=== PATIENT | female | born 1995 | race Caucasian/White ===

== ENCOUNTER 2017-04-08 16:53 | Emergency (ER) | payer OTHER ==
[~2017-04-08] VITALS: Ht 167.6 cm; Wt 78.0 kg
[~2017-04-08 16:53] MED LIST: IMITREX25 MG PO; PEPCID20 MG PO; PERCOCET 7.5-31 EACH PO
[2017-04-08] MEDS ORDERED: DEPO-PROVER150 MG/ML IM (17:07)
[2017-04-08] MEDS ORDERED: ZOFRAN ODT4 MG PO (18:25)
[2017-04-08] MEDS ORDERED: KETOROLAC TROME10 MG PO (18:41)
[2017-04-08] MEDS ORDERED: BACLOFEN10 MG PO (18:41)
== END 2017-04-08 18:59 | disposition home or self-care (01) ==
LOC: ED 16:53
DX: R10.32 Left lower quadrant pain (principal); Z79.899 Other long term (current) drug therapy
CPT/HCPCS: 74176; 80053; 81001; 84703; 85025; 99284

== ENCOUNTER 2017-05-27 15:40 | Emergency (ER) | payer OTHER ==
[~2017-05-27] VITALS: Ht 167.6 cm; Wt 73.5 kg
[~2017-05-27 15:40] MED LIST changes: +BACLOFEN10 MG PO; +DEPO-PROVER150 MG/ML IM; +KETOROLAC TROME10 MG PO; +ZOFRAN ODT4 MG PO
[2017-05-27] MEDS ORDERED: CILOXAN5 ML OD (16:16)
--- OUTSIDE RECORDS SUMMARY | 2017-05-27 16:37 | XMS | Clinical Summary ---
Demographics + + + | Address | [address] | | | [place] [address] | + + + | Home Phone | | + + + | Preferred Language | Unknown | + + + | Marital Status | Single | + + + | Worship Affiliation | CHR | + + + | Race | Unknown | + + + | Ethnic Group | Not or | + + + Author + + + | Author | NON REVENUE LOCATIONS | + + + | Organization | NON REVENUE LOCATIONS | + + + | Address | Unknown | + + + | Phone | Unavailable | + + + Support +------+ + + + +-------+ | Name | Relationship | Address | Phone | +------+ + + + +-------+ ECON | [address] | | [place] | [address] | +------+ + + + +-------+ Care Team Providers + +------+ + | Care Semiconductor Packages Platemaker Name | Role | Phone | + +------+ + | No Pcp Per Patient | PP | Unavailable | + +------+ + Source Comments BERNIE is fully live on both [facility] and [facility] Allergies No Known Allergies Current Medications + + + +---------+------+------+-------+ | Prescription | Sig. | Disp. | Refills | Star | End | Statu | | | | | | t | Date | s | | | | | | Date | | | + + + +---------+------+------+-------+ | multivitamin Oral | Take 1 Cap by mouth | | | | | Activ | | capsule | once daily. | | | | | e | + + + +---------+------+------+-------+ | Cholecalciferol, | Take 5,000 Units by | | | | | Activ | | Vitamin D3, (VITAMIN | mouth once daily. | | | | | e | | D3) 5,000 unit Oral | | | | | | | | tablet | | | | | | | + + + +---------+------+------+-------+ | ibuprofen 800 mg | Take 1 Tab by mouth | 30 Tab | 0 | 03/2 | | Activ | | Oral tablet | every eight hours as | | | 520 | | e | | | needed. 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 | | | | 13 | 3 | + + + + Family History + + +------+ + | Medical History | Relation | Name | Comments | + + +------+ + | Cancer | Maternal | | breast and ovarian, as well as a tumor in | | | Grandmoth | | her neck | | | er | | | + + +------+ + | Cancer | Mother | | skin | + + +------+ + | Cancer | Paternal | | breast | | | Grandmoth | | | | | er | | | + + +------+ + + +------+--------+ + | Relation | Name | Status | Comments | + +------+--------+ + | Maternal Grandmother | | | | + +------+--------+ + | Mother | | | | + +------+--------+ + | Paternal Grandmother | | | | + +------+--------+ + Social History + +-------+ +--------+------+ | Tobacco Use | Types | Packs/Day | Years | Date | | | | | Used | | + +-------+ +--------+------+ | Never Smoker | | | | | + +-------+ +--------+------+ + + +---------+ + | Alcohol Use | Drinks/We | oz/Week | Comments | | | ek | | | + + +---------+ + | No | | | | + + +---------+ + + + + | Sex Assigned at | Date Recorded | | | | + + + | Not on file | | + + + Last Filed Vital Signs + + + + | Vital Sign | Reading | Time Taken | + + + + | Blood Pressure | 116/64 | 10/20/2012 1:12 PM PDT | + + + + | Pulse | 70 | 09/20/2012 11:56 AM PDT | + + + + | Temperature | 36.4 C (97.5 F) | 09/20/2012 11:15 AM PDT | + + + + | Respiratory Rate | 16 | 09/20/2012 11:56 AM PDT | + + + + | Oxygen Saturation | 100% | 09/20/2012 11:56 AM PDT | + + + + | Inhaled Oxygen | - | - | | Concentration | | | + + + + | Weight | 68.6 kg (151 lb 4.8 | 10/20/2012 1:12 PM PDT | | | oz) | | + + + + | Height | 170.2 cm (5' 7") | 09/20/2012 8:44 AM PDT | + + + + | Body Mass Index | - | - | + + + + Plan of Treatment + + + + + | Health Maintenance | Due Date | Last Done | Comments | + + + + + | INFLUENZA VACCINE | | | | | (FLU SHOT) | 7 | | | + + + + + Results Not on filefrom Last 3 Months
== END 2017-05-27 16:34 | disposition home or self-care (01) ==
LOC: ED 15:40
DX: H10.9 Unspecified conjunctivitis (principal)
CPT/HCPCS: 99283

== ENCOUNTER 2017-08-04 00:40 | Emergency (ER) | payer OTHER, MEDICAID ==
[~2017-08-04] VITALS: Ht 167.6 cm; Wt 74.8 kg
[~2017-08-04 00:40] MED LIST changes: +CILOXAN5 ML OD
--- OUTSIDE RECORDS SUMMARY | 2017-08-04 01:40 | XMS | Clinical Summary ---
Demographics + + + | Address | [address] | | | [place] [address] | + + + | Home Phone | | + + + | Preferred Language | Unknown | + + + | Marital Status | Single | + + + | Rastafarian Affiliation | CHR | + + + [...] +------+ + + + +-------+ ECON | [address] | | [place] | [address] | +------+ + + + +-------+ Care Team Providers + +------+ + | Care Polishing Wheel Repairer Name | Role | Phone | + +------+ + | No Pcp Per Patient | PP | Unavailable | + +------+ + Source Comments BERNIE is fully live on both [facility] and [facility] In[facility] Allergies No Known Allergies Current Medications + [...]
--- OUTSIDE RECORDS SUMMARY | 2017-08-04 01:40 | XMS | Clinical Summary ---
Demographics + + + | Address | [address] | | | [place] [address] | + + + | Home Phone | | + + + | Preferred Language | Unknown | + + + | Marital Status | Single | + + + | Pentecostalism Affiliation | CHR | + + + [...] +------+ + + + +-------+ ECON | [address] | | [place] | [address] | +------+ + + + +-------+ Care Team Providers + +------+ + | Care Methodologist Name | Role | Phone | + +------+ + | No Pcp Per Patient | PP | Unavailable | + +------+ + Source Comments BERNIE is fully live on both [facility] and [facility] Allergies No Known Allergies Current Medications [...]
== END 2017-08-04 01:40 | disposition home or self-care (01) ==
LOC: ED 00:40
DX: H10.9 Unspecified conjunctivitis (principal)
CPT/HCPCS: 99282

== ENCOUNTER 2019-12-12 23:15 | Inpatient (IN) | payer OTHER ==
[~2019-12-12] VITALS: Ht 170.2 cm; Wt 104.0 kg
--- NOTE | 2019-12-13 07:58 | PR ---
[facility] [address] [facility] [place], [place] [address] Signed Progress Notes IP Datetime Report Generated by CPN: 12/13/2019 07:58 PROGRESS NOTES: [id number] Impression: Normal progression of labor Procedures: Artificial ROM Plan: Continue present management; Anticipate Vaginal Delivery VITAL SIGNS: [id number] Vital Signs: Reviewed; Within Normal Limits EXAM: [id number] Dilatation: 4.0 Effacement: 90 Station: -1 Uterine Contractions: every 2-3 minutes MEMBRANES: [id number] Membrane Status: Ruptured Amniotic Fluid Color: Clear ROM Note: AROM with small amount clear fluid returned Comments: Comfortable with Epidural Fetus A: [id number] FHR Baseline: 140 Variability: Moderate 6-25bpm Presentation: Vertex Fetus B: [id number] Signing Physician: Adriane Farfan MD Copies: ~ *Electronically Signed* 12/13/19 0758 ADRIANE FARFAN MD PATIENT NAME: MICHELLE RUDOLPH PROGRESS NOTE DATE OF : 97 PHYSICIAN: ADRIANE FARFAN MD RPT #: [id number] REPORT IS CONFIDENTIAL AND NOT TO BE RELEASED WITHOUT AUTHORIZATION
--- NOTE | 2019-12-14 09:52 | PR ---
[facility] [address] [facility] [place] [address] Signed PP Progress Notes Datetime Report Generated by CPN: 12/14/2019 09:52 SUBJECTIVE: [id number] Pain: Within normal limits Nausea/Vomiting: Denies Vital Signs: [id number] Vital Signs: Reviewed; Within Normal Limits Notable Details: PP Hgb/Hct = 10.0/32.0 EXAM: [id number] Abdomen/Uterus: Normal Lochia: Normal Extremities: Normal IMPRESSION/PLAN/PROCEDURES: [id number] Impression: Normal progression Plan: Continue present management Procedures: None Progress Notes: Doing well, without complaint Signing Physician: Adriane Farfan MD Copies: ~ *Electronically Signed* 12/14/19 0952 ADRIANE FARFAN MD PATIENT NAME: MICHELLE RUDOLPH PROGRESS NOTE DATE OF : 97 PHYSICIAN: ADRIANE FARFAN MD RPT #: [id number] REPORT IS CONFIDENTIAL AND NOT TO BE RELEASED WITHOUT AUTHORIZATION
--- NOTE | 2019-12-15 08:44 | PR ---
[facility] [address] [facility] [place] [address] Signed PP Progress Notes Datetime Report Generated by CPN: 12/15/2019 08:44 SUBJECTIVE: [id number] Pain: Within normal limits Nausea/Vomiting: Denies Vital Signs: [id number] Vital Signs: Reviewed; Within Normal Limits Notable Details: PP Hgb/Hct = 10.0/32.0 EXAM: [id number] Abdomen/Uterus: Normal Lochia: Normal Extremities: Normal IMPRESSION/PLAN/PROCEDURES: [id number] Impression: Normal progression Plan: Discharge Procedures: None Progress Notes: Doing well, without complaint, ready to go home. Signing Physician: Adriane Farfan MD Copies: ~ *Electronically Signed* 12/15/19 0844 ADRIANE FARFAN MD PATIENT NAME: MICHELLE RUDOLPH PROGRESS NOTE DATE OF : 97 PHYSICIAN: ADRIANE FARFAN MD RPT #: [id number] REPORT IS CONFIDENTIAL AND NOT TO BE RELEASED WITHOUT AUTHORIZATION
== END 2019-12-15 12:30 | disposition home or self-care (01) | DRG 807 ==
LOC: FBCO 23:15 → FBC 23:48
PROVIDERS: ADMIT General Practice
PROC: 10E0XZZ Delivery of Products of Conception, External Approach (ICD-10-PCS; principal; 2019-12-13)
PROC: 0UQMXZZ Repair Vulva, External Approach (ICD-10-PCS; 2019-12-13)
PROC: 0UQGXZZ Repair Vagina, External Approach (ICD-10-PCS; 2019-12-13)
PROC: 10907ZC Drainage of Amniotic Fluid, Therapeutic from Products of Conception, Via Natural or Artificial Opening (ICD-10-PCS; 2019-12-13)
PROC: 00HU33Z Insertion of Infusion Device into Spinal Canal, Percutaneous Approach (ICD-10-PCS; 2019-12-13)
PROC: 3E0R3BZ Introduction of Anesthetic Agent into Spinal Canal, Percutaneous Approach (ICD-10-PCS; 2019-12-13)
DX: O99.824 Streptococcus B carrier state complicating childbirth (principal); Z37.0 Single live birth; Z3A.39 39 weeks gestation of pregnancy; O71.82 Other specified trauma to perineum and vulva; O71.4 Obstetric high vaginal laceration alone; O99.62 Diseases of the digestive system complicating childbirth; K21.9 Gastro-esophageal reflux disease without esophagitis; O99.284 Endocrine, nutritional and metabolic diseases complicating childbirth; E02 Subclinical iodine-deficiency hypothyroidism; E55.9 Vitamin D deficiency, unspecified; Z79.899 Other long term (current) drug therapy
CPT/HCPCS: 01960; 36415; 85027; A9270; J2540; J2590; J2795; J3010; J7121

== ENCOUNTER 2020-10-05 21:02 | Emergency (ER) | payer OTHER ==
[~2020-10-05] VITALS: Ht 170.2 cm; Wt 93.4 kg
[~2020-10-05 21:02] MED LIST changes: +PREDNISONE20 MG PO
== END 2020-10-05 23:12 | disposition home or self-care (01) ==
LOC: ED 21:02
DX: R09.89 Other specified symptoms and signs involving the circulatory and respiratory systems (principal)
CPT/HCPCS: 96374; 96375; 99284-25; J1200; J2405; J2930

== ENCOUNTER 2021-02-26 16:08 | Emergency (ER) | payer OTHER ==
[~2021-02-26] VITALS: Ht 170.2 cm; Wt 93.4 kg
[2021-02-27] MEDS ORDERED: BENADRYL ALLERG25 MG PO (21:48)
== END 2021-02-26 16:38 | disposition home or self-care (01) ==
LOC: ED 16:08
DX: S01.01XA Laceration without foreign body of scalp, initial encounter (principal); W22.8XXA Striking against or struck by other objects, initial encounter
CPT/HCPCS: 99283

== ENCOUNTER 2021-02-27 20:21 | Emergency (ER) | payer OTHER ==
[~2021-02-27] VITALS: Ht 170.2 cm; Wt 93.4 kg
--- OUTSIDE RECORDS SUMMARY | 2021-02-27 20:28 | XMS ---
PreManage Notification: MICHELLE MEDINA Security De Icer Events No recent Security Events currently on file CRITERIA MET - [facility] - 2 Visits in 30 Days CARE PROVIDERS There are no care providers on record at this time. [facility] has no Care Guidelines for this patient. [place] VISIT COUNT (12 MO.) [facility] T[facility] NOTE: Visits indicate total known visits. ED/C VISIT TRACKING (12 MO.) [facility]21 [facility] COMPLAINT: - RT EYE SWELLING 02/26/2021 16:08 [facility] TYPE: Emergency COMPLAINT: - HEAD INJURY 10/05/2020 21:03 [facility] [place] TYPE: Emergency COMPLAINT: - CHEST PAIN DIAGNOSES: - Other specified symptoms and signs involving the circulatory and respiratory systems 04/21/2020 16:08 [facility] [place] TYPE: Emergency COMPLAINT: - ALLERGIC REACTION DIAGNOSES: - Unspecified contact dermatitis due to other chemical products - Unspecified contact dermatitis, unspecified cause - Poisoning by other topical agents, accidental (unintentional), initial encounter - Unspecified contact dermatitis due to other chemical products INPATIENT VISIT TRACKING (12 MO.) No inpatient visits to display in this time frame [email or web address]
[2021-02-27] MEDS ORDERED: BENADRYL ALLERG25 MG PO (21:48)
== END 2021-02-27 21:59 | disposition home or self-care (01) ==
LOC: ED 20:21
DX: H02.89 Other specified disorders of eyelid (principal)
CPT/HCPCS: 99283

== ENCOUNTER 2022-02-25 13:35 | Inpatient (IN) | payer OTHER ==
[~2022-02-25] VITALS: Ht 170.2 cm; Wt 116.2 kg
[~2022-02-25 13:35] MED LIST changes: +BENADRYL ALLERG25 MG PO
--- NOTE | 2022-02-25 18:07 | PR ---
[facility] [address] [facility] [place], [place] [address] Signed Progress Notes IP Datetime Report Generated by CPN: 02/25/2022 18:07 PROGRESS NOTES: [id number] Impression: Normal Progression of Labor Procedures: Artificial ROM Plan: Continue Present Management; Anticipate Vaginal Delivery Informed Consent Obtain: Vaginal Delivery VITAL SIGNS: [id number] Vital Signs: Reviewed; Within Normal Limits EXAM: [id number] Dilatation: 5.0 Effacement: 70 Station: -3 Contractions: Irregular MEMBRANES: [id number] Comments: PT seen and examined. Doing well. Epidural placement completed and pt comfortable. AROM performed w/out difficulty for moderate amount of clear fluid. Continue expectant management. FETUS A: [id number] FHR Baseline: 130 Variability: Moderate 6-25bpm Accelerations: 15X15 Decelerations: None FHR Category: Category I Presentation: Vertex Comments on Fetus A: No evidence of metabolic acidosis FETUS B: [id number] Signing Physician: Melany Bello DO Copies: ~ *Electronically Signed* 02/25/22 5069 MELANY BELLO DO PATIENT NAME: MICHELLE MEDINA FRANCISCO JAVIER PROGRESS NOTE DATE OF : 97 PHYSICIAN: MELANY BELLO DO RPT #: [id number] REPORT IS CONFIDENTIAL AND NOT TO BE RELEASED WITHOUT AUTHORIZATION
--- NOTE | 2022-02-25 21:02 | PR ---
[facility] [address] [place], [place] [address] Signed Progress Notes IP Datetime Report Generated by CPN: 02/25/2022 21:02 PROGRESS NOTES: [id number] Impression: Normal Progression of Labor; Reassuring Heart Rate Procedures: Intrauterine Pressure Catheter; Scalp Electrode; Sterile Vag Exam Plan: Continue Present Management Informed Consent Obtain: Vaginal Delivery VITAL SIGNS: E2100375 Vital Signs: Reviewed; Within Normal Limits EXAM: [id number] Dilatation: 5.5 Effacement: 75 Station: -2 Contractions: Irregular MEMBRANES: [id number] Comments: Pt seen and examined. Doing well. Comfortable w/ epidural after rebolus. IUPC and FSE placed w/out difficulty. Discussed anticapted remainder of labor / delivery, adequate pelvis, and EFW. All questions answered. Anticipate . FETUS A: [id number] FHR Baseline: 130 Variability: Moderate 6-25bpm Accelerations: 15X15 Decelerations: None FHR Category: Category I Presentation: Vertex Comments on Fetus A: No evidence of metabolic acidosis FETUS B: [id number] Signing Physician: Melany Bello DO Copies: ~ *Electronically Signed* 02/25/222101 MELANY BELLO DO PATIENT NAME: MICHELLE MEDINA PROGRESS NOTE DATE OF : 97 PHYSICIAN: MELANY BELLO DO RPT #: [id number] REPORT IS CONFIDENTIAL AND NOT TO BE RELEASED WITHOUT AUTHORIZATION
--- NOTE | 2022-02-26 13:01 | PR ---
[facility] [address] [facility] [place], [place] [address] Signed PP Progress Notes Datetime Report Generated by CPN: 02/26/2022 13:01 SUBJECTIVE: [id number] Pain: Within Normal Limits Nausea/Vomiting: Denies Flatus: Yes Bowel Movement: No Vital Signs: [id number] Vital Signs: Reviewed; Within Normal Limits EXAM: Ongoing Cardiovascular: Normal Respiratory: Normal Abdomen/Uterus: Normal Lochia: Normal Vulva/Perineum: Not Done Breasts: Not Done CVA Tenderness: Normal Extremities: Normal Incision: Not Applicable Progress: Normal Exam Comments: Fundus firm U-2 nontender IMPRESSION/PLAN/PROCEDURES: [id number] Impression: Normal Progression Plan: Continue Present Management Progress Notes: Pt doing well. No concerns. Anticipate d/c home tomorrow. Signing Physician: Melany Bello DO Copies: ~ *Electronically Signed* 02/26/22 1301 MELANY BELLO DO PATIENT NAME: MICHELLE MEDINA PROGRESS NOTE DATE OF : 97 PHYSICIAN: MELANY BELLO DO RPT #: [id number] REPORT IS CONFIDENTIAL AND NOT TO BE RELEASED WITHOUT AUTHORIZATION
--- NOTE | 2022-02-27 07:55 | PR ---
[facility] [address] [facility] [place], [place] [address] Signed PP Progress Notes Datetime Report Generated by CPN: 02/27/2022 07:55 SUBJECTIVE: [id number] Pain: Within Normal Limits Nausea/Vomiting: Denies Flatus: Yes Bowel Movement: No Vital Signs: [id number] Vital Signs: Reviewed; Within Normal Limits EXAM: Ongoing Cardiovascular: Normal Respiratory: Normal Abdomen/Uterus: Normal Lochia: Normal Vulva/Perineum: Not Done Breasts: Not Done CVA Tenderness: Normal Extremities: Normal Incision: Not Applicable Progress: Normal Exam Comments: Fundus firm U-2 nontender. IMPRESSION/PLAN/PROCEDURES: [id number] Impression: Normal Progression Plan: Discharge Procedures: None Progress Notes: Pt seen and examined. Doing well. Ambulating, voiding, and tolerating full diet. Pain and lochia minimal. well. No fevers/chills or other concerns. Desires d/c home. Reviewed d/c instructions in detail. Planning pp tubal. Signing Physician: Melany Bello DO Copies: ~ *Electronically Signed* 02/27/22 0755 MELANY BELLO DO PATIENT NAME: MICHELLE MEDINA PROGRESS NOTE DATE OF : 97 PHYSICIAN: MELANY BELLO DO RPT #: [id number] REPORT IS CONFIDENTIAL AND NOT TO BE RELEASED WITHOUT AUTHORIZATION
== END 2022-02-27 10:55 | disposition home or self-care (01) | DRG 768 ==
LOC: FBC 13:35
PROVIDERS: ADMIT Obstetrics & Gynecology; ATTEND Obstetrics & Gynecology
PROC: 10E0XZZ Delivery of Products of Conception, External Approach (ICD-10-PCS; principal; 2022-02-25)
PROC: 0UQJXZZ Repair Clitoris, External Approach (ICD-10-PCS; 2022-02-25)
PROC: 10907ZC Drainage of Amniotic Fluid, Therapeutic from Products of Conception, Via Natural or Artificial Opening (ICD-10-PCS; 2022-02-25)
PROC: 0UQMXZZ Repair Vulva, External Approach (ICD-10-PCS; 2022-02-25)
PROC: 00HU33Z Insertion of Infusion Device into Spinal Canal, Percutaneous Approach (ICD-10-PCS; 2022-02-25)
PROC: 3E0R3BZ Introduction of Anesthetic Agent into Spinal Canal, Percutaneous Approach (ICD-10-PCS; 2022-02-25)
PROC: 10H07YZ Insertion of Other Device into Products of Conception, Via Natural or Artificial Opening (ICD-10-PCS; 2022-02-25)
DX: O99.824 Streptococcus B carrier state complicating childbirth (principal); Z37.0 Single live birth; O69.81X0 Labor and delivery complicated by cord around neck, without compression, not applicable or unspecified; O71.82 Other specified trauma to perineum and vulva; O70.0 First degree perineal laceration during delivery; E03.9 Hypothyroidism, unspecified; O99.284 Endocrine, nutritional and metabolic diseases complicating childbirth; Z3A.39 39 weeks gestation of pregnancy
CPT/HCPCS: 36415; 85027; 86850; 86900; 86901; 87502; A9270; C9803; J1170; J2001; J2405; J2540; J2590; J2795; J7121; U0003

== ENCOUNTER 2023-04-13 19:28 | Emergency (ER) | payer OTHER ==
[~2023-04-13] VITALS: Ht 170.2 cm; Wt 97.5 kg
[2023-04-13] MEDS ORDERED: TOPIRAMATE25 MG PO (23:05)
[2023-04-13] MEDS ORDERED: UBRELVY100 MG PO (23:05)
[2023-04-14 01:04] VITALS: BP 128/68
== END 2023-04-14 01:05 | disposition home or self-care (01) ==
LOC: ED 19:28
DX: S61.011A Laceration without foreign body of right thumb without damage to nail, initial encounter (principal); W25.XXXA Contact with sharp glass, initial encounter; Z23 Encounter for immunization; Z79.899 Other long term (current) drug therapy
CPT/HCPCS: 90715

== ENCOUNTER 2023-11-22 03:55 | Emergency (ER) | payer OTHER ==
[~2023-11-22] VITALS: Ht 170.2 cm; Wt 106.2 kg
[~2023-11-22 03:55] MED LIST changes: +TOPIRAMATE25 MG PO; +UBRELVY100 MG PO
[2023-11-22] MEDS ORDERED: ondansetron HCL 4 MG/2 ML VIAL IV ONE (04:30)
[2023-11-22] MEDS ORDERED: SODIUM CHLORIDE 0.9% 500 ML IV ONE (04:30)
[2023-11-22 04:38] LABS: HEMOGLOBIN 13.2 g/dL (12.0-18.0); MCV 82.3 fl (81-99)
[2023-11-22 04:45] LABS: BASOPHILS 0.3 % (0-2); EOSINOPHILS 0.5 % (0-6); HEMATOCRIT 40.7 % (35.0-50.0); LYMPHOCYTES 14.5 % (24-44); MCH 26.8 (27-36); MCHC 32.5 g/dl (30-36); MONOCYTES 4.6 % (0-12); NEUTROPHILS 80.1 % (39-80); PLATELET COUNT 388 K/uL (140-440); RBC 4.95 M/ul (4.3-5.7); RDW 13.3 (10.5-15.0)
[2023-11-22 04:53] LABS: ALBUMIN 3.3 g/dL (3.4-5.0); ALBUMIN/GLOBULIN RATIO 0.75 (1.1-2.4); ANION GAP 15.3 (7-21); BILIRUBIN, TOTAL 0.4 ng/dL (0.2-1.0); BUN/CREATININE RATIO 11.7 (6.0-28.6); CALCIUM 8.5 mg/dL (8.5-10.1); CREATININE, SERUM 0.94 mg/dL (0.55-1.02); MAGNESIUM 2.2 mg/dL (1.8-2.4); POTASSIUM 4.3 mmol/L (3.5-5.1); PROTEIN, TOTAL 7.7 g/dL (6.4-8.2)
[2023-11-22 05:16] LABS: BILIRUBIN, URINE NEGATIVE (negative); BLOOD/HGB, URINE NEGATIVE (Negative); KETONE, URINE NEGATIVE (Negative); LEUK ESTERASE, URINE NEGATIVE (negative); NITRITE, URINE NEGATIVE (negative); PH, URINE 8.5 (5-7)
[2023-11-22] MEDS ORDERED: ONDANSETRON ODT8 MG PO (05:27)
[2023-11-22] MEDS ORDERED: ONDANSETRON 4 MG HOME.PACK SL ONE (05:30)
[2023-11-22 05:40] VITALS: BP 118/69
== END 2023-11-22 05:38 | disposition home or self-care (01) ==
LOC: ED 03:55
PROVIDERS: Family Medicine
DX: A08.4 Viral intestinal infection, unspecified (principal); Z79.899 Other long term (current) drug therapy
CPT/HCPCS: 36415; 80053; 81003; 83735; 84703; 85025; 96361; 96374; 99284-25; A9270; J2405; J7040

== ENCOUNTER 2024-04-03 17:40 | Observation (INO) | payer OTHER ==
[~2024-04-03] VITALS: Ht 170.2 cm; Wt 110.0 kg
[~2024-04-03 17:40] MED LIST changes: +ONDANSETRON ODT8 MG PO
[2024-04-03 18:09] LABS: BASOPHILS 0.2 % (0-2); EOSINOPHILS 0.7 % (0-6); HEMATOCRIT 40.7 % (35.0-50.0); MCH 28.3 (27-36); MCHC 34.3 g/dl (30-36); MCV 82.5 fl (81-99); MONOCYTES 5.3 % (0-12); NEUTROPHILS 78.8 % (39-80); PLATELET COUNT 348 K/uL (140-440); RBC 4.94 M/ul (4.3-5.7); RDW 13.6 (10.5-15.0)
[2024-04-03 18:15] LABS: INR 1.01 (0.80-1.30)
[2024-04-03] MEDS ORDERED: CEFTRIAXONE/SODIUM CHLORIDE 2 GM/100 ML PIGGYBACK IV ONE (18:15)
[2024-04-03] MEDS ORDERED: SODIUM CHLORIDE 0.9% 1,000 ML IV PRN ×2 (18:15→20:00)
[2024-04-03 18:17] LABS: PARTIAL THROMBOPLASTIN TIME 29.1 Sec (22.9-41.3)
[2024-04-03 18:21] LABS: ALBUMIN 3.3 g/dL (3.4-5.0); ALBUMIN/GLOBULIN RATIO 0.79 (1.1-2.4); ANION GAP 16.7 (7-21); BILIRUBIN, TOTAL 0.2 ng/dL (0.2-1.0); BUN/CREATININE RATIO 8.33 (6.0-28.6); CALCIUM 8.7 mg/dL (8.5-10.1); CREATININE, SERUM 0.96 mg/dL (0.55-1.02); POTASSIUM 3.7 mmol/L (3.5-5.1); PROTEIN, TOTAL 7.5 g/dL (6.4-8.2)
[2024-04-03 18:31] LABS: LACTIC ACID, BLOOD 2.1 mmol/L (0.4-2.0)
[2024-04-03] MEDS ORDERED: ACETAMINOPHEN 500 MG TAB PO ONE (18:45)
[2024-04-03 19:00] LABS: INFLUENZA B NAA NEGATIVE (NEGATIVE); RESPIRATORY SYNCYTIAL VIR NAA NEGATIVE (NEGATIVE)
[2024-04-03] MEDS ORDERED: AZITHROMYCIN/DEXTROSE 500 MG/250 ML BAG ONE (20:24)
[2024-04-03] MEDS ORDERED: AZITHROMYCIN 500 MG in DEXTROSE 5% 250 ML IV ONE (20:30)
[2024-04-03] MEDS ORDERED: ALBUTEROL/IPRATROPIUM 3 ML NEB INH ONE (22:00)
[2024-04-03] MEDS ORDERED: BENZONATATE 100 MG CAP PO ONE (22:00)
[2024-04-03 22:21] LABS: BILIRUBIN, URINE NEGATIVE (negative); BLOOD/HGB, URINE NEGATIVE (Negative); KETONE, URINE NEGATIVE (Negative); LEUK ESTERASE, URINE NEGATIVE (negative); NITRITE, URINE NEGATIVE (negative); PH, URINE 7.5 (5-7)
[2024-04-03] MEDS ORDERED: SODIUM CHLORIDE 0.9% 1,000 ML IV SCH (22:45)
[2024-04-03] MEDS ORDERED: ACETAMINOPHEN 325 MG TAB PO PRN (23:45)
[2024-04-03] MEDS ORDERED: GUAIFENESIN 10 ML UNIT DOSE CUP PO ONE (23:45)
[2024-04-03] MEDS ORDERED: GUAIFENESIN/DEXTROMETHORPHAN 5 ML SYRUP PO ONE (23:45)
[2024-04-04] VITALS (11 sets, daily range): BP systolic 116–134; BP diastolic 64–99
[2024-04-04] MEDS ORDERED: GUAIFENESIN 10 ML UNIT DOSE CUP PO PRN (00:15)
[2024-04-04] MEDS ORDERED: IBUPROFEN 400 MG TAB PO PRN (00:15)
[2024-04-04] MEDS ORDERED: BENZONATATE 100 MG CAP PO PRN (00:15)
--- NOTE | 2024-04-04 00:30 | NUR ---
PATIENT ARRIVED TO THE FLOOR VIA STRETCHER. PATIENT ABLE TO SELF XFER TO HOSPITAL BED. PATIENTS VITALS TAKEN AND RECORDED. PATIENT PLACED ON TELE #7. PATIENTS ADMISSION COMPLETED BY FLAGSETTER. PATIENT DENIES ANY PAIN. PATIENT GIVEN ICE WATER AND SANDWICH BOX. PATIENT NOTED TO BE FEBRILE. PLACED CALL TO MD AND RECEIVED VERBAL ORDERS. VERIFIED ORDERS USING THE REPEATBACK METHOD. PATIENT IS ON RA. PATIENT ORIENTED TO CALL LIGHT. DISCUSSED PLAN OF CARE WITH PATIENT AND ALL QUESTIONS ANSWERED. NO FURTHER NEEDS NOTED.
--- NOTE | 2024-04-04 02:14 | NUR ---
PATIENT ASSISTED TO THE BR A SBA. PATIENT ABLE TO VOID. PATIENT IS BACK IN BED RESTING. PATIENT REPORTS PAIN WITH COUGHING. PATIENTS TEMP EVALUATED AND CONTINUES TO BED ELEVATED. PRN MEDICATION GIVEN FOR PAIN/FEVER-SEE EMAR. PATIENT PROVIDED FRESH ICE WATER AND A CUP OF ICE. PATIENT DENIES ANY FURTHER NEEDS. CALL LIGHT IN REACH.
--- NOTE | 2024-04-04 03:45 | NUR ---
TEMP RECHECKED AND IS WNL. PATIENT JAE ANY NEEDS. CALL LIGHT IN REACH.
--- NOTE | 2024-04-04 06:31 | NUR ---
PATIENTS VITALS TAKEN AND RECORDED. INTAKE AND OUTPUT RECORDED. PATIENT UP TO BR AND ABLE TO VOID. PATIENT IS BACK IN BED RESTING. PATIENT REPORTS A COUGH, PRN MEDICATION GIVEN PER ORDER. PATIENT PROVIE FRESH ICE WATER. PATIENT JAE ANY FURTHER NEEDS. CALL LIGHT IN REACH. PATIENT DENIES ANY SOB. PATIENT IS ON RA.
[2024-04-04 07:31] LABS: BASOPHILS 0.3 % (0-2); EOSINOPHILS 0.9 % (0-6); HEMOGLOBIN 12.1 g/dL (12.0-18.0); LYMPHOCYTES 27.9 % (24-44); MCH 27.9 (27-36); MCHC 33.7 g/dl (30-36); MCV 82.8 fl (81-99); MONOCYTES 6.5 % (0-12); NEUTROPHILS 64.4 % (39-80); PLATELET COUNT 242 K/uL (140-440); RBC 4.35 M/ul (4.3-5.7); RDW 13.4 (10.5-15.0)
[2024-04-04 07:33] LABS: ANION GAP 10.7 (7-21); BUN/CREATININE RATIO 7.89 (6.0-28.6); CALCIUM 8.4 mg/dL (8.5-10.1); CREATININE, SERUM 0.76 mg/dL (0.55-1.02); MAGNESIUM 2.2 mg/dL (1.8-2.4); POTASSIUM 3.7 mmol/L (3.5-5.1)
--- NOTE | 2024-04-04 07:53 | NUR ---
PT RESTING ON BACK WITH EYES CLOSED, RR EVEN AND UNLABORED. CPOX IN PLACE. CALL LIGHT IN REACH.
--- NOTE | 2024-04-04 08:03 | NUR ---
PT WAS LAYING DOWN WHEN I WENT IN TO CHECK IF SHES GOTTEN HER BREAKFAST. GAVE PT A WARM WASH CLOTH AND ASKED IF SHE WANTED TO SIT UP IN HER CHAIR FOR BREAKFAST. PT DENIED AND IS SITTING UP IN BED FOR BREAKFAST AND DIDNT NEED ANYTHING ELSE FROM ME AND CALL LIGHT IS WITHIN REACH.
--- NOTE | 2024-04-04 08:40 | NUR ---
ASSESSMENT COMPLETE - PT RESTING IN BED AWAKE AND 100% BREAKFAST EATEN. SP02 >92% ON ROOM AIR. HARSH COUGH NOTED WHICH PT IS SPLINTING R/T RIB PAIN. PRN ADMINISTERED. AFEBRILE AT THIS TIME. PT VOIDING IN BATHROOM INDEPENDENTLY, ENCOURAGED PO FLUID INTAKE. CURRENT POC AND INTERVENTIONS EXPLAINED, PT THANKFUL AND STATES UNDERSTANDING. CALL LIGHT IN REACH.
[2024-04-04] MEDS ORDERED: TOPIRAMATE 25 MG TAB PO SCH (09:54)
--- NOTE | 2024-04-04 10:00 | NUR ---
RN ROUNDING ON PT - PT SITTING UP IN BED RESTING, LOOKING AT PHONE. VS STABLE, REMAINS AFEBRILE. SP02 STABLE ON ROOM AIR. PT C/O HARSH COUGH THAT HURTS. VOIDING WITHOUT DIFFICULTY. CALL LIGHT IN REACH.
--- NOTE | 2024-04-04 10:14 | NUR ---
SPOKE TO PATIENT ABOUT THE DC PLAN.PATIENT'S DEMOGRAPHICS ARE CORRECT. PATIENT DOES NOT USE DME. PATIENT HAS MONEY FOR HOUSING AND FOOD. PATIENT HAS FRIENDS AND FANILY AND FRIENDS THAT CAN HELP. PATIENT PLANS TO GO HOME WITH HER . 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
--- NOTE | 2024-04-04 10:54 | NUR ---
GOT PT MORE WATER AND ASKED IF SHE WANTED A TEA SHE SAID YES I MADE PT A TEA PT DIDNT NEED ANYTHING ELSE AND CALL LIGHT IS WITHIN REACH.
[2024-04-04] MEDS ORDERED: GUAIFENESIN/CODEINE 5 ML UDC PO PRN (11:00)
--- NOTE | 2024-04-04 11:00 | NUR ---
PT CONTINUING TO EXPERIENCE BRONCHIAL SPASMS - UPDATED, ORDERS ENTERED FOR RT ASSESSMENT AND MEDS. SP02 REMAINS STABLE DURING COUGHING EPISODES. TEA WITH HONEY PROVIDED WELL PRN MEDICATIONS. RT IN ROOM TO COMPLETE ASSESSMENT. PT DENIES EXPOSURE TO ANYONE SICK WITH COUGH OR CONFINED PROLONGED EXPOSURE TO MINORITY GROUPS AT INCREASED RISK OF TB. PT STATES [facility] IS HER ONLY PLACE OF EXPOSURE TO COMMUNITY OUTSIDE OF HOME.
[2024-04-04] MEDS ORDERED: ALBUTEROL SULFATE 0.083% 3 ML VIAL ONE (11:03)
[2024-04-04] MEDS ORDERED: ALBUTEROL SULFATE 0.083% 3 ML VIAL INH PRN (11:15)
--- NOTE | 2024-04-04 11:25 | NUR ---
PT ASKED FOR HONEY AND HOT WATER PT GOT IT AND DIDNT NEED ANYTHING ELSE AND CALL LIGHT IS WITHIN REACH.
[2024-04-04] MEDS ORDERED: PHARMACY RENAL DOSE ADJUSTMENT 1 DOSE MISC PO SCH (12:00)
--- NOTE | 2024-04-04 12:15 | NUR ---
RN ROUNDING ON PT - PT UNABLE TO EAT SERVED LUNCH R/T NAUSEA PROVOKED BY BROCCOLI ON PLATE. SUBSTITUE LUNCH CALLED TO KITCHEN AND MENU PROVIDED FOR PT TO PICK DINNER. PT STATES COUGH IS SLIGHTLY IMPROVED AFTER COUGH MEDICATION.
--- NOTE | 2024-04-04 13:30 | NUR ---
ASSESSMENT COMPLETE - REMAINS STABLE ON ROOM AIR BUT EXPERIENCING BRONCHIAL SPASMS THAT RESULT IN PAIN AND GAGGING. UNABLE TO TAKE FULL DEEP BREATH IN WITHOUT PROVOKING COUGH. RT IN ROOM FOR PRN NEB WHICH DOES PROVIDE SOME RELIEF. PT REMAINS AFEBRILE, VS STABLE.
[2024-04-04] MEDS ORDERED: PROZAC20 MG PO (17:44)
[2024-04-04] MEDS ORDERED: CEFTRIAXONE/SODIUM CHLORIDE 2 GM/100 ML PIGGYBACK IV SCH (18:00)
--- NOTE | 2024-04-04 18:08 | NUR ---
RN IN ROOM TO ADMINISTER SCHEDULED MEDICATIONS - PT RESTING IN BED AND NOTED TO BE TACHYCARDIC AND TACHYPNEA. TEMP 99.5. PT COMPLAINS OF GENERALIZED PAIN AND CHILLS. PRNS ADMINISTERED. PT SLOWLY EATING DINNER AND OVERALL FEELS POORLY THIS EVENING. SPO2 REMAINS STABLE ON ROOM AIR, ON TELE MONITORING WITH CPOX. CALL LIGHT IN REACH.
--- NOTE | 2024-04-04 19:28 | NUR ---
WALKING IN ROOM, HAS NOT TOUCHED DINNER YET. VOIDED LARGE AMOUNT CLEAR YELLOW URINE. C/O CHEST/COUGH DISCOMOFRT, MEDICATED. BACK TO BED
[2024-04-04] MEDS ORDERED: AZITHROMYCIN 500 MG in DEXTROSE 5% 250 ML IV SCH (20:00)
[2024-04-05] VITALS (7 sets, daily range): BP systolic 127–146; BP diastolic 70–82
--- NOTE | 2024-04-05 01:01 | NUR ---
AWAKE, ON ROOM AIR, C/O SORE THROAT AND RIB PAIN FROM COUGHING, DRY NON PRODUCTIVE COUGH PRESENT, MEDICATED WITH COUGH SYRUP AND TYLENOL. COOPERATIVE WITH SECOND ASSESSMENT
--- NOTE | 2024-04-05 03:40 | NUR ---
Resting, eyes closed, no s/sx distress or cough, turns and rpositions self in bed. Independent in room.
--- NOTE | 2024-04-05 04:04 | NUR ---
has hacky dry non productive cough. c/o rib and generalized pain, medicated with motrin 400mg po. fresh water given. Independent in room, up to brp, voiding large amounts of clear yellow urine.
--- NOTE | 2024-04-05 05:21 | NUR ---
Awake, dry, hacky non productive cough present. medicated with tessalon perles. cooperative with vitals. no c/o pain. voiding QS and tolerating large amounts of liquids too, no n/v
[2024-04-05 05:31] LABS: BASOPHILS 0.3 % (0-2); EOSINOPHILS 1.5 % (0-6); HEMATOCRIT 37.3 % (35.0-50.0); HEMOGLOBIN 12.4 g/dL (12.0-18.0); LYMPHOCYTES 21.4 % (24-44); MCH 27.5 (27-36); MCHC 33.3 g/dl (30-36); MCV 82.8 fl (81-99); MONOCYTES 4.7 % (0-12); NEUTROPHILS 72.1 % (39-80); PLATELET COUNT 257 K/uL (140-440); RBC 4.51 M/ul (4.3-5.7); RDW 13.8 (10.5-15.0)
[2024-04-05 05:39] LABS: ANION GAP 10.9 (7-21); BUN/CREATININE RATIO 9.09 (6.0-28.6); CALCIUM 8.6 mg/dL (8.5-10.1); CREATININE, SERUM 0.88 mg/dL (0.55-1.02); MAGNESIUM 1.9 mg/dL (1.8-2.4); POTASSIUM 3.9 mmol/L (3.5-5.1)
--- NOTE | 2024-04-05 06:30 | NUR ---
C/O DRY HACKY COUGH, MEDICATED WITH COUGH SYRUP W CODEINE
--- NOTE | 2024-04-05 06:49 | NUR ---
tele#[address], SR at this time pulse 89.
--- NOTE | 2024-04-05 07:37 | NUR ---
PT AWAKE AND RESTING IN BED, STATES SHE IS FEELING "ABOUT THE SAME". PT DOWN TO XRAY FOR CXR PER WC.
--- NOTE | 2024-04-05 08:22 | NUR ---
MED REC COMPLETE
[2024-04-05] MEDS ORDERED: ENOXAPARIN SODIUM 40 MG/0.4 ML SYR SUB-Q SCH (09:00)
--- NOTE | 2024-04-05 09:19 | NUR ---
PT RESTING IN BED. PT GIVEN MEDICATIONS PER EMAR BY SENIOR PRODUCT CONSULTANT WITH DIRECT SUPERVISION. PT CONTINUES TO HAVE COUGH, DRY, DISCUSSED COUGH MEDICINE AND WILL PROVIDE WHEN AVAILABLE. DISCUSSED NEB, PT STATES NEBS FEEL HELPFUL WITH COUGH, RT CALLED AND WILL EVALUATE PT.
--- NOTE | 2024-04-05 09:30 | NUR ---
Pt was discussed in 8:30 meeting and has a severe cough. I spoke with pt and sge coughs throughout our visit. RT in and we discussed if humidified air would help. Sid does belive this would help. I discussed if she could buy a humidifier and she states her spouse is laid off. They could not affort an inexpensive one at the time. I will contact [facility] and speak with Lydia. Will check if this is something they can assist with. I also called Margaret MA at pts PCP [facility]. They do not supply humidifiers.
[2024-04-05] MEDS ORDERED: LEVOFLOXACIN750 MG PO (10:53)
[2024-04-05] MEDS ORDERED: CODEINE-GUAIFE120 ML PO (11:00)
--- NOTE | 2024-04-05 11:20 | NUR ---
PT NOT AVAIALBLE FOR VISIT. PROVIDED PRAYER.
--- NOTE | 2024-04-05 11:28 | NUR ---
PT SITTING UP IN BED TALKING TO PHARMYCIST.
--- NOTE | 2024-04-05 11:38 | NUR ---
In and spoke with Jacky. Let her know I have called [facility] and I am waiting for a return call. She states she called her mom and she is buying her a humidifier. Pt does have mask with cool, moist air at this time and feels this has helped her cough. She denies other needs for dc. Will go [facility] to [facility] where she and her spouse live. They are all taking care of an ailing grandfather.
== END 2024-04-05 12:00 | disposition home or self-care (01) ==
LOC: ED 17:40 → MS 17:41
PROVIDERS: Emergency Medicine; ADMIT Student in an Organized Health Care Education/Training Program; ATTEND Student in an Organized Health Care Education/Training Program
DX: J18.9 Pneumonia, unspecified organism (principal); G43.909 Migraine, unspecified, not intractable, without status migrainosus; A41.9 Sepsis, unspecified organism; E87.20 Acidosis, unspecified; Z79.899 Other long term (current) drug therapy
CPT/HCPCS: 36415; 71045; 71046; 71260; 80048; 80053; 81003; 83605; 83735; 84703; 85025; 85379; 85610; 85730; 87040; 87502; 94640; 94799; 96361; 96366; 96367; 96372; 96376; 99285-25; A9270; G0378; J0456; J0696; J1650; J7030; J7060; U0002